=== PATIENT | female | born 1980 | race Asian ===

== ENCOUNTER 2018-06-10 06:55 | Day surgery (SDC) | payer OTHER ==
[~2018-06-10 06:55] MED LIST: BUPIVAC MPF-EPI 0.5%-1:200000 30 ML VIAL. ONE; HYDR-971 PO; HYDR25SU18 RC; HYDR30CR61 TP; NAPR-514 PO; PNV1TABL25 PO
[2018-06-10] MEDS ORDERED: PROCHLORPERAZINE 10 MG/2 ML VIAL. IV PRN (07:00)
[2018-06-10] MEDS ORDERED: MORPHINE SULFATE 2 MG/ML VIAL. IV PRN (07:00)
[2018-06-10] MEDS ORDERED: LIDOCAINE 1% PF 2 ML VIAL. ID PRN (07:00)
[2018-06-10] MEDS ORDERED: ONDANSETRON PF 4 MG/2 ML VIAL. IV PRN (07:00)
[2018-06-10] MEDS ORDERED: fentaNYL PF VIAL 100 MCG/2 ML VIAL IV PRN (07:00)
[2018-06-10] MEDS ORDERED: HYDROmorphone 2 MG/ML VIAL IV PRN (07:00)
[2018-06-10] MEDS ORDERED: IV RINGERS,LACTATED 1000ML 1,000 ML IV SCH (07:00)
[2018-06-10] MEDS ORDERED: fentaNYL PF VIAL 100 MCG/2 ML VIAL ONE ×2 (07:28→09:45)
[2018-06-10] MEDS ORDERED: MIDAZOLAM HCL/PF 2 MG/2 ML VIAL. ONE (07:28)
[2018-06-10] MEDS ORDERED: ROCURONIUM 50 MG/5 ML VIAL. ONE (07:28)
[2018-06-10 08:00] LABS: U PREG PATIENT NEGATIVE (NEG)
[2018-06-10] MEDS ORDERED: ONDANSETRON PF 4 MG/2 ML VIAL. ONE (09:18)
[2018-06-10] MEDS ORDERED: PROPOFOL 20 ML IV ONE (09:18)
[2018-06-10] MEDS ORDERED: LIDOCAINE 2% PF Vial for OR 5 ML VIAL. ONE (09:18)
[2018-06-10] MEDS ORDERED: DEXAMETHASONE SOD PHOS 20 MG/5 ML VIAL. ONE (09:18)
[2018-06-10] MEDS ORDERED: GLYCOPYRROLATE 1 MG/5 ML VIAL. ONE (09:20)
[2018-06-10] MEDS ORDERED: NEOSTIGMINE METHYLSULFATE 5 MG/5 ML SYRINGE. ONE (09:20)
[2018-06-10] MEDS ORDERED: NAPR-514 PO (09:44)
[2018-06-10] MEDS ORDERED: HYDR-971 PO (09:44)
[2018-06-10] MEDS: fentaNYL PF VIAL 100 MCG/2 ML VIAL IV PRN ×2 (09:52→10:40)
[2018-06-10] MEDS ORDERED: HYDROcodone/APAP 5/325MG 1 TAB TABLET PO ONE (10:00)
--- NOTE | 2018-06-10 10:34 | OP ---
DATE OF SURGERY: 06/10/2018 PREOPERATIVE DIAGNOSIS: Multiparous, desires permanent sterilization. POSTOPERATIVE DIAGNOSIS: Multiparous, desires permanent sterilization. PROCEDURE: Laparoscopic bilateral tubal ligation with Filshie clips. SURGEON: Kenney Henley M.D. WILD ANIMAL CARETAKER: None. ANESTHESIA: General. ESTIMATED BLOOD LOSS: 10 mL. FLUIDS: Crystalloids. SPECIMENS: None. COMPLICATIONS: None. CONDITION: Stable. DESCRIPTION OF PROCEDURE: Risks, benefits, indications and alternatives were discussed in detail with the patient. The patient was brought to the OR theater, placed in dorsal lithotomy position in Phillip stirrups. Under adequate general anesthesia, the patient was prepped and draped in the usual sterile manner. Sponge stick was placed in the vaginal vault. Attention was then turned to the anterior abdominal wall. A small transverse infraumbilical incision was made to receive the trocar. Via the Visiport, a 5-mm trocar was placed without any difficulties. Pneumoperitoneum was created. Video laparoscope was placed through the trocar sleeve to view the pelvic contents. A small transverse suprapubic incision was made sharply to receive an 8-mm disposable trocar through this trocar sleeve. After the patient was placed in Trendelenburg, the right tube was identified, followed to its fimbriated end. Approximately 1-2 cm from the cornu, the Filshie clip was placed without any difficulty. Same procedure was carried out on the opposite side. Good application was assured bilaterally and the procedure was terminated. All laparoscopic instruments were removed. The pneumoperitoneum was allowed to dissipate. Trocar sleeves were removed. The incisions were reapproximated with 4-0 Monocryl in subcuticular fashion. The incisions were infiltrated with 0.5% Marcaine with epinephrine. Sponge, needle and instrument counts were correct x 2 per nursing staff. A sponge stick was removed from the vagina. The patient tolerated the procedure well. KENNEY HENLEY MD DR: STARR/tru JOB#: [id number] / [id number]
[2018-06-10] MEDS ORDERED: NAPROXEN 500 MG TABLET PO STA (10:44)
[2018-06-10 11:10] VITALS: BP 112/62
--- NOTE | 2018-06-17 06:50 | PDOC ---
BRIEF OPERATIVE NOTE Date: Jun 10, 2018 Pre-Op Diagnosis Desires sterilization Post-Op Diagnosis Same Procedure Performed Lap BTL with filshie clips Surgeon Lory Anesthesia Type: General Blood Loss 20cc Complications None LUZ SMITH MD Jun 17, 2018 06:50
== END 2018-06-10 11:10 | disposition home or self-care (01) ==
LOC: SURG 06:55
PROVIDERS: ATTEND Specialist
DX: Z30.2 Encounter for sterilization (principal)
CPT/HCPCS: 58671; 81025; A4264; A7015; J1100; J2001; J2250; J2405; J2704; J2710; J3010; J3490; A4461

== ENCOUNTER 2019-06-14 12:50 | Inpatient (IN) | payer BC, OTHER ==
[~2019-06-14] VITALS: Ht 152.4 cm; Wt 50.6 kg
[~2019-06-14 12:50] MED LIST changes: -BUPIVAC MPF-EPI 0.5%-1:200000 30 ML VIAL. ONE; +HYDR-3164 PO; -HYDR-971 PO
[2019-06-14] MEDS ORDERED: ACETAMINOPHEN 500 MG TABLET PO STA (13:26)
[2019-06-14] MEDS ORDERED: KETOROLAC 15 MG/ML VIAL. IV STA (13:26)
--- NOTE | 2019-06-14 13:26 | PHYS DOC ---
Adult General Chief Complaint Chief Complaint: FEVER HPI HPI Patient is a 38 year old female that presents with fever this been ongoing since this past Friday. She took ibuprofen 11:00 last night for the fever. She states she's also been having dysuria, and left flank pain. The patient states that she's also been having difficulty keeping fluids and food down. The patient rates her pain a 7 out of 10 in severity and sharp. Her vitals on arrival to the emergency department was 117 heart rate, 102.7 fever, 96% oxygen. 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 Review of Systems Review of Systems Constitutional: Denies fever or chills [] Eyes: Denies change in visual acuity, redness, or eye pain [] HENT: Denies nasal congestion or sore throat [] Respiratory: Denies cough or shortness of breath [] Cardiovascular: No additional information not addressed in HPI [] GI: Reports L flank pain, nausea, Denies vomiting, bloody stools or diarrhea [] :Reports dysuria. Musculoskeletal: Denies back pain or joint pain [] Integument: Denies rash or skin lesions [] Neurologic: Denies headache, focal weakness or sensory changes [] Endocrine: Denies polyuria or polydipsia [] Complete systems were reviewed and found to be within normal limits, except as d ocumented in this note. Current Medications Current Medications Current Medications Medications (Trade) Dose Ordered Sig/Edda Start Time Stop Time Status Last Admin Dose Admin Acetaminophen (Tylenol) 500 mg 1X STAT 06/14/19 13:26 06/14/19 13:31 DC 06/14/19 14:05 500 MG Ceftriaxone Sodium (Rocephin) 1 gm 1X STAT 06/14/19 16:41 06/14/19 16:42 DC Ketorolac Tromethamine (Toradol 15mg Vial) 10 mg 1X STAT 06/14/19 13:26 06/14/19 13:31 DC 06/14/19 14:05 10 MG Ondansetron HCl (Zofran) 4 mg 1X ONCE 06/14/19 13:30 06/14/19 13:31 DC 06/14/19 14:04 4 MG Potassium Chloride (Klor-Con) 60 meq 1X STAT 06/14/19 14:40 06/14/19 14:41 DC 06/14/19 14:47 60 MEQ Sodium Chloride 1,000 ml @ 1,000 mls/hr 1X ONCE 06/14/19 13:30 06/14/19 14:29 DC 06/14/19 14:03 1,000 MLS/HR Allergies Allergies Allergies Coded Allergies Type Severity Reaction Last Updated Verified No Known Drug Allergies 04/24/18 No Physical Exam Physical Exam Constitutional: Well developed, well nourished, no acute distress, toxic appearance. HENT: Normocephalic, atraumatic, bilateral external ears normal, oropharynx moist, no oral exudates, nose normal. [] Eyes: PERRLA, EOMI, conjunctiva normal, no discharge. [] Neck: Normal range of motion, no tenderness, supple, no stridor. [] Cardiovascular:Heart rate regular rhythm, no murmur [] Lungs & Thorax: Bilateral breath sounds clear to auscultation [] Abdomen: Bowel sounds normal, soft, L flank tenderness, no masses, no pulsatile masses. [] Skin: Warm, dry, no erythema, no rash. [] Back: No tenderness, has CVA tenderness. [] Extremities: No tenderness, no cyanosis, no clubbing, ROM intact, no edema. [] Neurologic: Alert and oriented X 3, normal motor function, normal sensory function, no focal deficits noted. [] Psychologic: Affect normal, judgement normal, mood normal. [] Current Patient Data Vital Signs Vital Signs Date Time Temp Pulse Resp B/P (MAP) Pulse Ox O2 Delivery O2 Flow Rate FiO2 06/14/19 13:37 102.7 117 20 112/62 (79) 96 Room Air 102.7 Lab Values Laboratory Tests Test 06/14/19 13:26 06/14/19 13:28 06/14/19 13:50 Urine Color Yellow Urine Clarity Cloudy Urine pH 5.5 Urine Specific [place] 1.015 Urine Protein 30 mg/dL (NEG-TRACE) Urine Glucose (UA) Negative mg/dL (NEG) Urine Ketones (Stick) >=80 mg/dL (NEG) Urine Blood Moderate (NEG) Urine Nitrite Negative (NEG) Urine Bilirubin Negative (NEG) Urine Urobilinogen Dipstick 0.2 mg/dL (0.2 mg/dL) Urine Leukocyte Esterase Large (NEG) Urine RBC 3-5 /HPF (0-2) Urine WBC Tntc /HPF (0-4) Urine Squamous Epithelial Cells Occ /LPF Urine Bacteria Moderate /HPF (0-FEW) Urine Mucus Slight /LPF POC Urine HCG, Qualitative Hcg negative (Negative) White Blood Count 8.6 x10^3/uL (4.0-11.0) Red Blood Count 4.45 x10^6/uL (3.50-5.40) Hemoglobin 11.9 g/dL (12.0-15.5) L Hematocrit 36.2 % (36.0-47.0) Mean Corpuscular Volume 82 fL (79-100) Mean Corpuscular Hemoglobin 27 pg (25-35) Mean Corpuscular Hemoglobin Concent 33 g/dL (31-37) Red Cell Distribution Width 14.4 % (11.5-14.5) Platelet Count 179 x10^3/uL (140-400) Neutrophils (%) (Auto) 86 % (31-73) H Lymphocytes (%) (Auto) 6 % (24-48) L Monocytes (%) (Auto) 8 % (0-9) Eosinophils (%) (Auto) 0 % (0-3) Basophils (%) (Auto) 0 % (0-3) Neutrophils # (Auto) 7.4 x10^3/uL (1.8-7.7) Lymphocytes # (Auto) 0.5 x10^3/uL (1.0-4.8) L Monocytes # (Auto) 0.7 x10^3/uL (0.0-1.1) Eosinophils # (Auto) 0.0 x10^3/uL (0.0-0.7) Basophils # (Auto) 0.0 x10^3/uL (0.0-0.2) Platelet Estimate Pending Sodium Level 138 mmol/L (136-145) Potassium Level 2.9 mmol/L (3.5-5.1) *L Chloride Level 101 mmol/L (98-107) Carbon Dioxide Level 19 mmol/L (21-32) L Anion Gap 18 (6-14) H Blood Urea Nitrogen 7 mg/dL (7-20) Creatinine 0.8 mg/dL (0.6-1.0) Estimated GFR (Cockcroft-Gault) 81.2 BUN/Creatinine Ratio 9 (6-20) Glucose Level 97 mg/dL (70-99) Lactic Acid Level 1.1 mmol/L (0.4-2.0) Calcium Level 8.3 mg/dL (8.5-10.1) L Total Bilirubin 0.6 mg/dL (0.2-1.0) Aspartate Amino Transferase (AST) 13 U/L (15-37) L Alanine Aminotransferase (ALT) 9 U/L (14-59) L Alkaline Phosphatase 63 U/L (46-116) Total Protein 8.0 g/dL (6.4-8.2) Albumin 3.4 g/dL (3.4-5.0) Albumin/Globulin Ratio 0.7 (1.0-1.7) L Laboratory Tests 06/14/19 13:50 Laboratory Tests 06/14/19 13:50 EKG EKG [] Radiology/Procedures Radiology/Procedures [][facility] [address] [place] [address] IMAGING REPORT Signed PATIENT: NILSA CHAU ACCOUNT: [id number] : 1980 LOCATION: ER AGE: 38 SEX: F EXAM STATUS: REG ER ORD. PHYSICIAN: LEELA CHAPA APRN REASON: l flank pain PROCEDURE: CT ABDOMEN PELVIS WO CONTRAST EXAM: Abdomen and pelvis CT without intravenous contrast. HISTORY: Left flank pain. TECHNIQUE: Computed tomographic images of the abdomen and pelvis were obtained without contrast. Multiplanar reformatting was performed. *One or more of the following individualized dose reduction techniques were utilized for this examination: 1. Automated exposure control. 2. Adjustment of the mA and/or kV according to patient size. 3. Use of iterative reconstruction technique. COMPARISON: None. FINDINGS: The exam is limited due to motion. Evaluation of the lower thorax is unremarkable. No hepatic lesion is seen. The gallbladder, pancreas and adrenal glands are unremarkable. The spleen is upper normal in size. There is a prominent renal collecting system. No convincing obstructing lesion is seen. There is no convincing nephrolithiasis. There is a calcification within the left adnexa, the appearance of which favors a phlebolith. The uterus is retroverted. There are bilateral fallopian tube closure devices. The bladder is nearly empty with associated wall thickening due to underdistention. No abnormally thickened or dilated loop of bowel is seen. There is no appendicitis. There is no lymphadenopathy. There is no suspicious osseous lesion. IMPRESSION: Limited exam due to motion. There is a prominent renal collecting system without clear obstructing lesion or nephrolithiasis. There is a calcification along the course of the distal left ureter, the appearance of which favors a phlebolith. There is also bladder wall thickening which is likely due to underdistention. Correlate with urinalysis to exclude cystitis. Electronically signed by: Sarika Hodges MD (06/14/2019 2:20 PM) [place] [id number] DICTATED and SIGNED BY: SARIKA HODGES MD DATE: 06/14/19 1420 Course & Med Decision Making Course & Med Decision Making Pertinent Labs and Imaging studies reviewed. (See chart for details) Will get CT, labs, UA, and give supportive care. UA shows leukocytes. Patient has been having high fever plus leukocytes in urine. Has been unable to keep fluids down at home. Will admit to hospital, Dr. Chaudhary accepts admission. Dragon Disclaimer Dragon Disclaimer This electronic medical record was generated, in whole or in part, using a voice recognition dictation system. Departure Departure Impression: Primary Impression: Pyelonephritis Disposition: ADMITTED INPATIENT Admitting Physician: FELIPE Condition: STABLE Referrals: NO PCP (PCP) LEELA CHAPA APRN Jun 14, 2019 13:26
[2019-06-14] MEDS ORDERED: IV NORMAL SALINE 1000ML BAG 1,000 ML IV ONE (13:30)
[2019-06-14] MEDS ORDERED: ONDANSETRON PF 4 MG/2 ML VIAL. IV ONE (13:30)
[2019-06-14 13:43] LABS: BILIRUBIN,URINE NEGATIVE (NEG); CLARITY,URINE CLOUDY; COLOR,URINE YELLOW; NITRITE,URINE NEGATIVE (NEG); PH,URINE 5.5; PROTEIN,URINE 30 mg/dL (NEG-TRACE); UROBILINOGEN,URINE 0.2 mg/dL (0.2 mg/dL)
[2019-06-14 14:08] LABS: BASO % 0 % (0-3); EOS % 0 % (0-3); HEMATOCRIT 36.2 % (36.0-47.0); HEMOGLOBIN 11.9 g/dL (12.0-15.5); LYMPH # 0.5 x10^3/uL (1.0-4.8); LYMPH % 6 % (24-48); MEAN CORPUSCULAR HEMOGLOBIN 27 pg (25-35); MEAN CORPUSCULAR HGB CONC 33 g/dL (31-37); MEAN CORPUSCULAR VOLUME 82 fL (79-100); MONO # 0.7 x10^3/uL (0.0-1.1); MONO % 8 % (0-9); NEUT # 7.4 x10^3/uL (1.8-7.7); NEUT % 86 % (31-73); PLATELET COUNT 179 x10^3/uL (140-400); RED BLOOD COUNT 4.45 x10^6/uL (3.50-5.40); RED CELL DISTRIBUTION WIDTH 14.4 % (11.5-14.5); WHITE BLOOD COUNT 8.6 x10^3/uL (4.0-11.0)
[2019-06-14 14:15] LABS: BACTERIA,URINE MODERATE /HPF (0-FEW); SQUAMOUS EPITHELIAL CELL,UR OCC /LPF; WBC,URINE TNTC /HPF (0-4)
--- NOTE | 2019-06-14 14:23 | RAD ---
EXAM: Abdomen and pelvis CT without intravenous contrast. HISTORY: Left flank pain. TECHNIQUE: Computed tomographic images of the abdomen and pelvis were obtained without contrast. Multiplanar reformatting was performed. *One or more of the following individualized dose reduction techniques were utilized for this examination: 1. Automated exposure control. 2. Adjustment of the mA and/or kV according to patient size. 3. Use of iterative reconstruction technique. COMPARISON: None. FINDINGS: The exam is limited due to motion. Evaluation of the lower thorax is unremarkable. No hepatic lesion is seen. The gallbladder, pancreas and adrenal glands are unremarkable. The spleen is upper normal in size. There is a prominent renal collecting system. No convincing obstructing lesion is seen. There is no convincing nephrolithiasis. There is a calcification within the left adnexa, the appearance of which favors a phlebolith. The uterus is retroverted. There are bilateral fallopian tube closure devices. The bladder is nearly empty with associated wall thickening due to underdistention. No abnormally thickened or dilated loop of bowel is seen. There is no appendicitis. There is no lymphadenopathy. There is no suspicious osseous lesion. IMPRESSION: Limited exam due to motion. There is a prominent renal collecting system without clear obstructing lesion or nephrolithiasis. There is a calcification along the course of the distal left ureter, the appearance of which favors a phlebolith. There is also bladder wall thickening which is likely due to underdistention. Correlate with urinalysis to exclude cystitis. Electronically signed by: Sarika Puckett MD (06/14/2019 2:20 PM) [id number]
[2019-06-14 14:32] LABS: ALBUMIN 3.4 g/dL (3.4-5.0); ALBUMIN/GLOBULIN RATIO 0.7 (1.0-1.7); CALCIUM 8.3 mg/dL (8.5-10.1); CREATININE 0.8 mg/dL (0.6-1.0); GFR 81.2; TOTAL BILIRUBIN 0.6 mg/dL (0.2-1.0)
[2019-06-14 14:34] LABS: POTASSIUM 2.9 mmol/L (3.5-5.1)
[2019-06-14] MEDS ORDERED: POTASSIUM CHLORIDE 20 MEQ TABLET.ER. PO STA (14:40)
[2019-06-14] MEDS ORDERED: cefTRIAXone IV Push 1 GM VIAL. IVP STA (16:41)
[2019-06-14] MEDS ORDERED: ONDANSETRON PF 4 MG/2 ML VIAL. IV PRN (17:30)
[2019-06-14] MEDS ORDERED: fentaNYL PF VIAL 100 MCG/2 ML VIAL IV PRN (17:30)
[2019-06-14 18:27] LABS: % LYMPHS 4 % (24-48); % MONOS 6 % (0-10); % SEGS 90 % (35-66)
[2019-06-14 18:28] LABS: ANISOCYTOSIS SLIGHT; PLT ESTIMATE ADEQUATE (ADEQUATE); SCHISTOCYTES OCC
[2019-06-14 19:10] VITALS: BP 92/47
--- NOTE | 2019-06-14 21:28 | PDOC1 ---
History and Physical Date of Admission Date of Admission DATE: 06/14/19 TIME: 21:22 Identification/Chief Complaint Chief Complaint flank pain, fever Source Source: Chart review, Patient History of Present Illness History of Present Illness Ms. Armijo, is a 38 year old female admit with fever and flank pain. She has had fver for days, has been taking NSAIDS. poro po intake, dysuria, and left flank pain. The patient states that she's also been having difficulty keeping fluids and food down. pain 7/10 her helps to translate, they are [employer] Past Medical History Cardiovascular: No pertinent hx Pulmonary: No pertinent hx GI: No pertinent hx Grav: 5 Para: 5 Past Surgical History Past Surgical History: No pertinent history Family History Family History: No Significant Social History Smoke: No ALCOHOL: none Drugs: None Current Problem List Problem List Problems Medical Problems: (1) Pyelonephritis Status: Acute Current Medications Current Medications Current Medications Sodium Chloride 1,000 ml @ 1,000 mls/hr 1X ONCE IV Last administered on 06/14/19at 14:03; Start 06/14/19 at 13:30; Stop 06/14/19 at 14:29; Status DC Ondansetron HCl (Zofran) 4 mg 1X ONCE IV Last administered on 06/14/19at 14:04; Start 06/14/19 at 13:30; Stop 06/14/19 at 13:31; Status DC Ketorolac Tromethamine (Toradol 15mg Vial) 10 mg 1X STAT IV Last administered on 06/14/19at 14:05; Start 06/14/19 at 13:26; Stop 06/14/19 at 13:31; Status DC Acetaminophen (Tylenol) 500 mg 1X STAT PO Last administered on 06/14/19at 14:05; Start 06/14/19 at 13:26; Stop 06/14/19 at 13:31; Status DC Potassium Chloride (Klor-Con) 60 meq 1X STAT PO Last administered on 06/14/19at 14:47; Start 06/14/19 at 14:40; Stop 06/14/19 at 14:41; Status DC Ceftriaxone Sodium (Rocephin) 1 gm 1X STAT IVP Last administered on 06/14/19at 17:29; Start 06/14/19 at 16:41; Stop 06/14/19 at 16:42; Status DC Ondansetron HCl (Zofran) 4 mg PRN Q8HRS PRN IV NAUSEA/VOMITING; Start 06/14/19 at 17:30; Stop 06/15/19 at 17:29 Fentanyl Citrate (Fentanyl 2ml Vial) 50 mcg PRN Q1HR PRN IV PAIN; Start 06/14/19 at 17:30; Stop 06/15/19 at 17:29 Active Scripts Active [place] 5-325 Tablet (Acetaminophen/Hydrocodone Bitart) 1 Each Tablet 1 Tab PO PRN Q6HRS PRN Naproxen 500 Mg Tablet 500 Mg PO BID Reported Tablet (Pnv Cmb#95/Ferrous Fumarate/Fa) 1 Each Tablet 1 Each PO DAILY Allergies Allergies: Coded Allergies: No Known Drug Allergies (Unverified , 04/24/18) ROS General: YES: Chills, Fatigue, Malaise PSYCHOLOGICAL ROS: No: Anxiety, Behavioral Disorder, Concentration difficultie, Decreased libido, Depression, Disorientation, Hallucinations, Hostility, Irritablity, Memory difficulties, Mood Swings, Obsessive thoughts, Physical abuse, Sexual abuse, Sleep disturbances, Suicidal ideation, Other Eyes: No Blurry vision, No Decreased vision, No Double vision, No Dry eyes, No Excessive tearing, No Eye Pain, No Itchy Eyes, No Loss of vision, No Photop hobia, No Scotomata, No Uses contacts, No Uses glasses, No Other HEENT: No: Heacaches, Visual Changes, Hearing change, Nasal congestion, Nasal discharge, Oral lesions, Sinus pain, Sore Throat, Epistaxis, Sneezing, Snoring, Tinnitus, Vertigo, Vocal changes, Other Gastrointestinal: Yes Nausea; No Vomiting, No Abdominal Pain, No Diarrhea, No Constipation, No Melena, No Hematochezia, No Other Genitourinary: YES Dysuria, YES Flank Pain; No Frequency, No Incontinence, No Hematuria, No Retention, No Discharge, No Urgency, No Pain, No Other, No , No , No , No , No , No , No Musculoskeletal: No Gait Disturbance, No Joint Pain, No Joint Stiffness, No Joint Swelling, No Muscle Pain, No Muscular Weakness, No Pain In:, No Swelling In:, No Other Neurological: No Behavorial Changes, No Bowel/Bladder ControlChng, No Confusion, No Dizziness, No Gait Disturbance, No Headaches, No Impaired Coord/balance, No Memory Loss, No Numbness/Tingling, No Seizures, No Speech Problems, No Tremors, No Visual Changes, No Weakness, No Other Skin: No Dry Skin, No Eczema, No Hair Changes, No Lumps, No Mole Changes, No Mottling, No Nail Changes, No Pruritus, No Rash, No Skin Lesion Changes, No Other, No Acne Physical Exam General: Alert, Cooperative, No acute distress HEENT: Atraumatic, PERRLA Lungs: Clear to auscultation Heart: S1S2 Rectal Exam: not examined Extremities: No clubbing, No cyanosis Skin: No rashes Neuro: Sensation intact, Cranial nerves 3-12 NL Psych/Mental Status: Mood NL Vitals Vitals Vital Signs Date Time Temp Pulse Resp B/P (MAP) Pulse Ox O2 Delivery O2 Flow Rate FiO2 06/14/19 19:10 98.2 88 18 92/47 (62) 100 Room Air 98.2 Labs Labs Laboratory Tests Test 06/14/19 13:26 06/14/19 13:28 06/14/19 13:50 Urine Color Yellow Urine Clarity Cloudy Urine pH 5.5 Urine Specific [place] 1.015 Urine Protein 30 mg/dL (NEG-TRACE) Urine Glucose (UA) Negative mg/dL (NEG) Urine Ketones (Stick) >=80 mg/dL (NEG) Urine Blood Moderate (NEG) Urine Nitrite Negative (NEG) Urine Bilirubin Negative (NEG) Urine Urobilinogen Dipstick 0.2 mg/dL (0.2 mg/dL) Urine Leukocyte Esterase Large (NEG) Urine RBC 3-5 /HPF (0-2) Urine WBC Tntc /HPF (0-4) Urine Squamous Epithelial Cells Occ /LPF Urine Bacteria Moderate /HPF (0-FEW) Urine Mucus Slight /LPF Bedside Urine HCG, Qualitative Hcg negative (Negative) White Blood Count 8.6 x10^3/uL (4.0-11.0) Red Blood Count 4.45 x10^6/uL (3.50-5.40) Hemoglobin 11.9 g/dL (12.0-15.5) Hematocrit 36.2 % (36.0-47.0) Mean Corpuscular Volume 82 fL (79-100) Mean Corpuscular Hemoglobin 27 pg (25-35) Mean Corpuscular Hemoglobin Concent 33 g/dL (31-37) Red Cell Distribution Width 14.4 % (11.5-14.5) Platelet Count 179 x10^3/uL (140-400) Neutrophils (%) (Auto) 86 % (31-73) Lymphocytes (%) (Auto) 6 % (24-48) Monocytes (%) (Auto) 8 % (0-9) Eosinophils (%) (Auto) 0 % (0-3) Basophils (%) (Auto) 0 % (0-3) Neutrophils # (Auto) 7.4 x10^3/uL (1.8-7.7) Lymphocytes # (Auto) 0.5 x10^3/uL (1.0-4.8) Monocytes # (Auto) 0.7 x10^3/uL (0.0-1.1) Eosinophils # (Auto) 0.0 x10^3/uL (0.0-0.7) Basophils # (Auto) 0.0 x10^3/uL (0.0-0.2) Segmented Neutrophils % 90 % (35-66) Lymphocytes % 4 % (24-48) Monocytes % 6 % (0-10) Platelet Estimate Adequate (ADEQUATE) Anisocytosis Slight Schistocytes Occ Sodium Level 138 mmol/L (136-145) Potassium Level 2.9 mmol/L (3.5-5.1) Chloride Level 101 mmol/L (98-107) Carbon Dioxide Level 19 mmol/L (21-32) Anion Gap 18 (6-14) Blood Urea Nitrogen 7 mg/dL (7-20) Creatinine 0.8 mg/dL (0.6-1.0) Estimated GFR (Cockcroft-Gault) 81.2 BUN/Creatinine Ratio 9 (6-20) Glucose Level 97 mg/dL (70-99) Lactic Acid Level 1.1 mmol/L (0.4-2.0) Calcium Level 8.3 mg/dL (8.5-10.1) Total Bilirubin 0.6 mg/dL (0.2-1.0) Aspartate Amino Transf (AST/SGOT) 13 U/L (15-37) Alanine Aminotransferase (ALT/SGPT) 9 U/L (14-59) Alkaline Phosphatase 63 U/L (46-116) Total Protein 8.0 g/dL (6.4-8.2) Albumin 3.4 g/dL (3.4-5.0) Albumin/Globulin Ratio 0.7 (1.0-1.7) Laboratory Tests Test 06/14/19 13:26 06/14/19 13:28 06/14/19 13:50 Urine Color Yellow Urine Clarity Cloudy Urine pH 5.5 Urine Specific [place] 1.015 Urine Protein 30 mg/dL (NEG-TRACE) Urine Glucose (UA) Negative mg/dL (NEG) Urine Ketones (Stick) >=80 mg/dL (NEG) Urine Blood Moderate (NEG) Urine Nitrite Negative (NEG) Urine Bilirubin Negative (NEG) Urine Urobilinogen Dipstick 0.2 mg/dL (0.2 mg/dL) Urine Leukocyte Esterase Large (NEG) Urine RBC 3-5 /HPF (0-2) Urine WBC Tntc /HPF (0-4) Urine Squamous Epithelial Cells Occ /LPF Urine Bacteria Moderate /HPF (0-FEW) Urine Mucus Slight /LPF Bedside Urine HCG, Qualitative Hcg negative (Negative) White Blood Count 8.6 x10^3/uL (4.0-11.0) Red Blood Count 4.45 x10^6/uL (3.50-5.40) Hemoglobin 11.9 g/dL (12.0-15.5) Hematocrit 36.2 % (36.0-47.0) Mean Corpuscular Volume 82 fL (79-100) Mean Corpuscular Hemoglobin 27 pg (25-35) Mean Corpuscular Hemoglobin Concent 33 g/dL (31-37) Red Cell Distribution Width 14.4 % (11.5-14.5) Platelet Count 179 x10^3/uL (140-400) Neutrophils (%) (Auto) 86 % (31-73) Lymphocytes (%) (Auto) 6 % (24-48) Monocytes (%) (Auto) 8 % (0-9) Eosinophils (%) (Auto) 0 % (0-3) Basophils (%) (Auto) 0 % (0-3) Neutrophils # (Auto) 7.4 x10^3/uL (1.8-7.7) Lymphocytes # (Auto) 0.5 x10^3/uL (1.0-4.8) Monocytes # (Auto) 0.7 x10^3/uL (0.0-1.1) Eosinophils # (Auto) 0.0 x10^3/uL (0.0-0.7) Basophils # (Auto) 0.0 x10^3/uL (0.0-0.2) Segmented Neutrophils % 90 % (35-66) Lymphocytes % 4 % (24-48) Monocytes % 6 % (0-10) Platelet Estimate Adequate (ADEQUATE) Anisocytosis Slight Schistocytes Occ Sodium Level 138 mmol/L (136-145) Potassium Level 2.9 mmol/L (3.5-5.1) Chloride Level 101 mmol/L (98-107) Carbon Dioxide Level 19 mmol/L (21-32) Anion Gap 18 (6-14) Blood Urea Nitrogen 7 mg/dL (7-20) Creatinine 0.8 mg/dL (0.6-1.0) Estimated GFR (Cockcroft-Gault) 81.2 BUN/Creatinine Ratio 9 (6-20) Glucose Level 97 mg/dL (70-99) Lactic Acid Level 1.1 mmol/L (0.4-2.0) Calcium Level 8.3 mg/dL (8.5-10.1) Total Bilirubin 0.6 mg/dL (0.2-1.0) Aspartate Amino Transf (AST/SGOT) 13 U/L (15-37) Alanine Aminotransferase (ALT/SGPT) 9 U/L (14-59) Alkaline Phosphatase 63 U/L (46-116) Total Protein 8.0 g/dL (6.4-8.2) Albumin 3.4 g/dL (3.4-5.0) Albumin/Globulin Ratio 0.7 (1.0-1.7) VTE Prophylaxis Ordered VTE Prophylaxis Devices: No VTE Pharmacological Prophylaxi: Yes Assessment/Plan Assessment/Plan sepsis UTI and acute pyelonephritis hypokalemia, , currently breastfeedign a one year old. she is [employer], the [facility] dept has a physician who speaks the language and may be helpful admit MONTY WEN MD Jun 14, 2019 21:28
[2019-06-14] MEDS ORDERED: cefTRIAXone IV Push 1 GM VIAL. IVP SCH (22:00)
[2019-06-14 22:45] VITALS: BP 100/53
[2019-06-14] MEDS: IV RINGERS,LACTATED 1000ML 1,000 ML IV SCH (23:16)
[2019-06-14] MEDS: ENOXAPARIN 40 MG/0.4 ML SYRINGE. SQ SCH (23:18)
[2019-06-15] MEDS: ACETAMINOPHEN 325 MG TABLET. PO PRN ×3 (00:18→16:52)
[2019-06-15 03:40] VITALS: BP 84/52
[2019-06-15 04:40] LABS: BASO % 0 % (0-3); EOS % 0 % (0-3); HEMATOCRIT 30.4 % (36.0-47.0); LYMPH # 1.2 x10^3/uL (1.0-4.8); LYMPH % 16 % (24-48); MEAN CORPUSCULAR HEMOGLOBIN 27 pg (25-35); MEAN CORPUSCULAR HGB CONC 33 g/dL (31-37); MEAN CORPUSCULAR VOLUME 82 fL (79-100); MONO % 14 % (0-9); NEUT % 70 % (31-73); PLATELET COUNT 165 x10^3/uL (140-400); RED BLOOD COUNT 3.72 x10^6/uL (3.50-5.40); RED CELL DISTRIBUTION WIDTH 14.4 % (11.5-14.5); WHITE BLOOD COUNT 7.2 x10^3/uL (4.0-11.0)
[2019-06-15 05:10] LABS: ALBUMIN 2.7 g/dL (3.4-5.0); ALBUMIN/GLOBULIN RATIO 0.7 (1.0-1.7); CALCIUM 7.8 mg/dL (8.5-10.1); CREATININE 0.7 mg/dL (0.6-1.0); GFR 94.7; MAGNESIUM 1.9 mg/dL (1.8-2.4); POTASSIUM 3.7 mmol/L (3.5-5.1); TOTAL BILIRUBIN 0.4 mg/dL (0.2-1.0); TOTAL PROTEIN 6.5 g/dL (6.4-8.2)
[2019-06-15 07:00] VITALS: BP 91/53
[2019-06-15] MEDS: POTASSIUM CHLORIDE 20 MEQ TABLET.ER. PO SCH (09:31)
[2019-06-15] MEDS: FLU VAX QS 2019-20 (36MOS+)/PF 0.5 ML SYRINGE. VAX IM ONE (09:34)
[2019-06-15] MEDS: IV RINGERS,LACTATED 1000ML 1,000 ML IV SCH ×2 (09:36→17:52)
--- NOTE | 2019-06-15 10:51 | NUR ---
Patient had temperature of 101.3 at 22:45 last night. Temp. this am 98.3. Flu Vac held this shift. Will monitor.
[2019-06-15 11:00] VITALS: BP 84/49
--- NOTE | 2019-06-15 13:19 | NUR ---
SS following for discharge planning. SS reviewed pt chart. Pt is from home with spouse and is currently on room air. SS will continue to follow for discharge planning.
--- NOTE | 2019-06-15 14:07 | PDOC ---
[facility] PROGRESS NOTE Chief Complaint Chief Complaint sepsis UTI and acute pyelonephritis hypokalemia, , currently breastfeedign a [age] year old. she is [place], the [facility] de[facility] has a physician who speaks the language and may be helpful History of Present Illness History of Present Illness 06/15/2019 Pt was seen and examined. Pt does not speak Kiswahili was interviewed with interviewed with staff member who spoke Croatian. She reports that she feels better however still has residual left flank pain. Reports that she has 5 children at home and would like to return home to take care of them. She at all of her breakfast and has had no complaints with tolerating her diet. Vitals/I&O Vitals/I&O: Vital Signs Date Time Temp Pulse Resp B/P (MAP) Pulse Ox O2 Delivery O2 Flow Rate FiO2 06/15/19 11:00 100.1 94 18 84/49 (61) 98 Room Air 100.1 I & O 06/14/19 06/14/19 06/15/19 15:00 23:00 07:00 Intake Total 1000 ml 1200 ml Balance 1000 ml 1200 ml Physical Exam General: Alert, Oriented X3, Cooperative, No acute distress Heart: Regular rate Lungs: Clear Abdomen: Normal bowel sounds Extremities: No clubbing, No cyanosis Skin: No rashes Labs Labs: Laboratory Tests Test 06/15/19 03:10 06/15/19 04:00 Sodium Level 142 mmol/L (136-145) Potassium Level 3.7 mmol/L (3.5-5.1) Chloride Level 107 mmol/L (98-107) Carbon Dioxide Level 20 mmol/L (21-32) Anion Gap 15 (6-14) Blood Urea Nitrogen 7 mg/dL (7-20) Creatinine 0.7 mg/dL (0.6-1.0) Estimated GFR (Cockcroft-Gault) 94.7 BUN/Creatinine Ratio 10 (6-20) Glucose Level 77 mg/dL (70-99) Calcium Level 7.8 mg/dL (8.5-10.1) Magnesium Level 1.9 mg/dL (1.8-2.4) Total Bilirubin 0.4 mg/dL (0.2-1.0) Aspartate Amino Transf (AST/SGOT) 13 U/L (15-37) Alanine Aminotransferase (ALT/SGPT) 9 U/L (14-59) Alkaline Phosphatase 53 U/L (46-116) Total Protein 6.5 g/dL (6.4-8.2) Albumin 2.7 g/dL (3.4-5.0) Albumin/Globulin Ratio 0.7 (1.0-1.7) White Blood Count 7.2 x10^3/uL (4.0-11.0) Red Blood Count 3.72 x10^6/uL (3.50-5.40) Hemoglobin 10.0 g/dL (12.0-15.5) Hematocrit 30.4 % (36.0-47.0) Mean Corpuscular Volume 82 fL (79-100) Mean Corpuscular Hemoglobin 27 pg (25-35) Mean Corpuscular Hemoglobin Concent 33 g/dL (31-37) Red Cell Distribution Width 14.4 % (11.5-14.5) Platelet Count 165 x10^3/uL (140-400) Neutrophils (%) (Auto) 70 % (31-73) Lymphocytes (%) (Auto) 16 % (24-48) Monocytes (%) (Auto) 14 % (0-9) Eosinophils (%) (Auto) 0 % (0-3) Basophils (%) (Auto) 0 % (0-3) Neutrophils # (Auto) 5.0 x10^3/uL (1.8-7.7) Lymphocytes # (Auto) 1.2 x10^3/uL (1.0-4.8) Monocytes # (Auto) 1.0 x10^3/uL (0.0-1.1) Eosinophils # (Auto) 0.0 x10^3/uL (0.0-0.7) Basophils # (Auto) 0.0 x10^3/uL (0.0-0.2) Review of Systems Review of Systems: Denies CP Denies SOB Denies N/V/D Assessment and Plan Assessmemt and Plan Problems Medical Problems: (1) Hypokalemia Status: Acute (2) Pyelonephritis Status: Acute (3) Sepsis Status: Acute (4) UTI (urinary tract infection) Status: Acute sepsis UTI and acute pyelonephritis hypokalemia, , currently breast feeding a [age] year old Plan: 1) IV antibiotics (ceftriaxone inpatient with plans to transition to ciprofloxacin outpatient) 2) Trend white counts 3) Plan to D/C patient tomorrow if no fevers and WBCs are wnl 4) Advised patient begin taking slow fe at home due to slight normocytic anemia while hospitalized 5) Wrote patient a prescription for Ciprofloxacin 6) PT/OT 7) DVT prophylaxis Comment Review of Relevant I have reviewed the following items jimmy (where applicable) has been applied. Medications: Current Medications Medications (Trade) Dose Ordered Sig/Edda Route PRN Reason Start Time Stop Time Status Last Admin Dose Admin Potassium Chloride (Klor-Con) 60 meq 1X STAT PO 06/14/19 14:40 06/14/19 14:41 DC 06/14/19 14:47 Ceftriaxone Sodium (Rocephin) 1 gm 1X STAT IVP 06/14/19 16:41 06/14/19 16:42 DC 06/14/19 17:29 Potassium Chloride (Klor-Con) 20 meq DAILYWBKFT PO 06/15/19 08:00 06/15/19 09:31 Ringer's Solution 1,000 ml @ 100 mls/hr Q10H IV 06/14/19 21:30 06/15/19 09:36 Enoxaparin Sodium (Lovenox 40mg Syringe) 40 mg Q24H SQ 06/14/19 21:30 06/14/19 23:18 Acetaminophen (Tylenol) 650 mg PRN Q6HRS PRN PO FEVER > 101 06/15/19 00:00 06/15/19 09:31 REMINGTON MOTA III DO Jun 15, 2019 14:07
[2019-06-15 15:00] VITALS: BP 132/52
--- NOTE | 2019-06-15 17:05 | NUR ---
Patient Temp 103 at 1650. Tylenol 325mg 2 tabs given and cold ice pack applied. Will monitor.
[2019-06-15] MEDS ORDERED: cefTRIAXone IV Push 1 GM VIAL. IVP SCH (17:30)
[2019-06-15 19:41] VITALS: BP 90/50
[2019-06-15] MEDS: ENOXAPARIN 40 MG/0.4 ML SYRINGE. SQ SCH (20:50)
[2019-06-15 23:14] VITALS: BP 88/51
[2019-06-16 03:41] VITALS: BP 84/54
[2019-06-16] MEDS: ACETAMINOPHEN 325 MG TABLET. PO PRN (04:14)
[2019-06-16] MEDS: IV RINGERS,LACTATED 1000ML 1,000 ML IV SCH (04:35)
[2019-06-16 05:46] LABS: BASO % 0 % (0-3); EOS % 0 % (0-3); HEMATOCRIT 30.8 % (36.0-47.0); LYMPH # 0.9 x10^3/uL (1.0-4.8); LYMPH % 21 % (24-48); MEAN CORPUSCULAR HEMOGLOBIN 26 pg (25-35); MEAN CORPUSCULAR HGB CONC 33 g/dL (31-37); MEAN CORPUSCULAR VOLUME 81 fL (79-100); MONO # 0.5 x10^3/uL (0.0-1.1); MONO % 11 % (0-9); NEUT # 3.1 x10^3/uL (1.8-7.7); NEUT % 68 % (31-73); PLATELET COUNT 162 x10^3/uL (140-400); RED BLOOD COUNT 3.83 x10^6/uL (3.50-5.40); RED CELL DISTRIBUTION WIDTH 14.3 % (11.5-14.5); WHITE BLOOD COUNT 4.5 x10^3/uL (4.0-11.0)
[2019-06-16 06:11] LABS: ALBUMIN 2.8 g/dL (3.4-5.0); ALBUMIN/GLOBULIN RATIO 0.7 (1.0-1.7); CALCIUM 8.3 mg/dL (8.5-10.1); CREATININE 0.6 mg/dL (0.6-1.0); GFR 113.1; POTASSIUM 3.4 mmol/L (3.5-5.1); TOTAL BILIRUBIN 0.2 mg/dL (0.2-1.0); TOTAL PROTEIN 6.8 g/dL (6.4-8.2)
[2019-06-16 07:28] VITALS: BP 84/50
[2019-06-16] MEDS: POTASSIUM CHLORIDE 20 MEQ TABLET.ER. PO SCH (09:30)
[2019-06-16] MEDS ORDERED: LACTOBACILLUS RHAMNOSUS GG 1 CAPSULE. PO SCH (11:00)
[2019-06-16 11:09] VITALS: BP 84/50
[2019-06-16] MEDS: FLU VAX QS 2019-20 (36MOS+)/PF 0.5 ML SYRINGE. VAX IM ONE (12:59)
[2019-06-16] MEDS ORDERED: AMOX1TAB58 PO (13:57)
[2019-06-16] MEDS ORDERED: LACT1CAP21 PO (14:00)
--- NOTE | 2019-06-16 14:33 | PDOC ---
[facility] PROGRESS NOTE Chief Complaint Chief Complaint sepsis UTI and acute pyelonephritis hypokalemia, , currently breastfeedign a [age] year old. she is Citizen Of [place], the [facility] de[facility] has a physician who speaks the language and may be helpful History of Present Illness History of Present Illness 06/16/2019 Pt was seen and examined. Pt is eager to be discharged and reports return to baseline. 06/15/2019 Pt was seen and examined. Pt does not speak Kuwaiti was interviewed with interviewed with staff member who spoke Citizen Of [place]. She reports that she feels better however still has residual left flank pain. Reports that she has 5 children at home and would like to return home to take care of them. She at all of her breakfast and has had no complaints with tolerating her diet. Vitals/I&O Vitals/I&O: Vital Signs Date Time Temp Pulse Resp B/P (MAP) Pulse Ox O2 Delivery O2 Flow Rate FiO2 06/16/19 11:09 97.9 83 16 84/50 (61) 97 Room Air 97.9 I & O 06/15/19 06/15/19 06/16/19 15:00 23:00 07:00 Intake Total 320 ml 120 ml 1300 ml Output Total 100 ml Balance 320 ml 120 ml 1200 ml Physical Exam General: Alert, Oriented X3, Cooperative, No acute distress Heart: Regular rate Lungs: Clear Abdomen: Normal bowel sounds Extremities: No clubbing, No cyanosis Skin: No rashes Labs Labs: Laboratory Tests Test 06/16/19 04:40 White Blood Count 4.5 x10^3/uL (4.0-11.0) Red Blood Count 3.83 x10^6/uL (3.50-5.40) Hemoglobin 10.0 g/dL (12.0-15.5) Hematocrit 30.8 % (36.0-47.0) Mean Corpuscular Volume 81 fL (79-100) Mean Corpuscular Hemoglobin 26 pg (25-35) Mean Corpuscular Hemoglobin Concent 33 g/dL (31-37) Red Cell Distribution Width 14.3 % (11.5-14.5) Platelet Count 162 x10^3/uL (140-400) Neutrophils (%) (Auto) 68 % (31-73) Lymphocytes (%) (Auto) 21 % (24-48) Monocytes (%) (Auto) 11 % (0-9) Eosinophils (%) (Auto) 0 % (0-3) Basophils (%) (Auto) 0 % (0-3) Neutrophils # (Auto) 3.1 x10^3/uL (1.8-7.7) Lymphocytes # (Auto) 0.9 x10^3/uL (1.0-4.8) Monocytes # (Auto) 0.5 x10^3/uL (0.0-1.1) Eosinophils # (Auto) 0.0 x10^3/uL (0.0-0.7) Basophils # (Auto) 0.0 x10^3/uL (0.0-0.2) Sodium Level 140 mmol/L (136-145) Potassium Level 3.4 mmol/L (3.5-5.1) Chloride Level 104 mmol/L (98-107) Carbon Dioxide Level 25 mmol/L (21-32) Anion Gap 11 (6-14) Blood Urea Nitrogen 5 mg/dL (7-20) Creatinine 0.6 mg/dL (0.6-1.0) Estimated GFR (Cockcroft-Gault) 113.1 BUN/Creatinine Ratio 8 (6-20) Glucose Level 108 mg/dL (70-99) Calcium Level 8.3 mg/dL (8.5-10.1) Total Bilirubin 0.2 mg/dL (0.2-1.0) Aspartate Amino Transf (AST/SGOT) 15 U/L (15-37) Alanine Aminotransferase (ALT/SGPT) 10 U/L (14-59) Alkaline Phosphatase 51 U/L (46-116) Total Protein 6.8 g/dL (6.4-8.2) Albumin 2.8 g/dL (3.4-5.0) Albumin/Globulin Ratio 0.7 (1.0-1.7) Review of Systems Review of Systems: Denies CP Denies SOB Denies N/V/D Assessment and Plan Assessmemt and Plan Problems Medical Problems: (1) Hypokalemia Status: Acute (2) Pyelonephritis Status: Acute (3) Sepsis Status: Acute (4) UTI (urinary tract infection) Status: Acute sepsis UTI and acute pyelonephritis hypokalemia, , currently breastfeedign a [age] year old. she is Citizen Of [place], the [facility] dept has a physician who speaks the language and may be helpful Plan 1) D/C patient today (WBC count back to baseline, with no reported fevers per nursing) 2) D/C previously written outpatient therapy of ciprofloxacin, wrote pt a prescription of Amox-Clav 500 for continuing outpatient pyelonephritis tx 3) Advised pt take slow fe otc 4) full code 5) DVT prophylaxis Comment Review of Relevant I have reviewed the following items jimmy (where applicable) has been applied. Medications: Current Medications Medications (Trade) Dose Ordered Sig/Edda Route PRN Reason Start Time Stop Time Status Last Admin Dose Admin Ceftriaxone Sodium (Rocephin) 1 gm Q24H IVP 06/15/19 17:30 06/15/19 17:51 Lactobacillus Rhamnosus (Culturelle) 1 cap BID PO 06/16/19 11:00 06/16/19 12:21 REMINGTON MOTA III DO Jun 16, 2019 14:33
--- NOTE | 2019-06-16 14:50 | NUR ---
Discharge Note: RUFINA CHAU Discharge instructions and discharge home medications reviewed with Patient and a copy given. All questions have been answered and understanding verbalized. The following instructions and handouts were given: using court interpreter phone, medication eduation, s/sx of infection, follow up monitoring Discontinued lines and drains: IV discontinued, dressing, clean dry and intact. Patient discharged to home with self via wheelchair
--- NOTE | 2019-06-17 19:55 | DS ---
DATE OF DISCHARGE: 06/16/2019 ADMISSION DIAGNOSIS: Pyelonephritis. DISCHARGE DIAGNOSIS: Resolving pyelonephritis. HOSPITAL COURSE: The patient is a pleasant middle-aged lady from [facility]. She was admitted with pyelonephritis. We gave her IV antibiotics and fluids. Over the next 48 hours, her symptoms resolved. We gave her a prescription for Augmentin 500 mg p.o. b.i.d. for 5 more days. DISPOSITION: Home. ACTIVITY: As tolerated. MEDICATIONS: Please see MRAD. TOTAL TIME: 33 minutes. REMINGTON MOTA DO DR: MACY/tru JOB#: [id number] / [id number]
== END 2019-06-16 15:45 | disposition home or self-care (01) | DRG 872 ==
LOC: ER 12:50 → 2 NORTH 17:21
PROVIDERS: ADMIT Internal Medicine; ATTEND Internal Medicine
DX: A41.9 Sepsis, unspecified organism (principal); N10 Acute pyelonephritis; E87.6 Hypokalemia; I87.8 Other specified disorders of veins
CPT/HCPCS: 36415; 74176; 80053; 81001; 81025; 83605; 83735; 85007; 85025; 87040; 87086; 87186; 90471; 90686; 96361; 96374; 96375; J0696; J1650; J1885; J2405; J7030; J7120; 99285-25; G0378

== ENCOUNTER 2021-06-15 20:12 | Inpatient (IN) | payer BC ==
[~2021-06-15] VITALS: Ht 152.4 cm; Wt 47.6 kg
[~2021-06-15 20:12] MED LIST changes: +AMOX1TAB58 PO; +LACT1CAP21 PO
[2021-06-15 23:03] LABS: BILIRUBIN,URINE NEGATIVE (NEG); CLARITY,URINE CLEAR; COLOR,URINE YELLOW; NITRITE,URINE NEGATIVE (NEG); PROTEIN,URINE NEGATIVE (NEG-TRACE); UROBILINOGEN,URINE 0.2 mg/dL (0.2 mg/dL)
--- NOTE | 2021-06-15 23:08 | PHYS DOC ---
Past Medical History Past Medical History: No Pertinent History Past Surgical History: Tubal ligation Smoking Status: Never Smoker Alcohol Use: None Drug Use: None General Adult EDM: Chief Complaint: ABDOMINAL PAIN HPI: HPI: Patient is a 40-year-old female with past medical history of 5 vaginal deliveries and tubal ligation presenting for lower left quadrant abdominal pain that began Friday along with her menstrual cycle. She reports that last night the pain radiated into her back on the left side. The pain is intermittent, sharp, and 4 out of 10. She also reports some pain with urination recently. She did not denies nausea/vomiting or diarrhea/constipation. He also denies any vaginal discharge recently but states about 2 months ago she had some vaginal itchiness that has since resolved and denies any concerns about sexually transmitted diseases. She denies any pain upon sexual intercourse. She states she has felt more short of breath with exertion and more fatigue over the last couple weeks. She has been fully vaccinated for COVID. Review of Systems: Review of Systems: Constitutional: Denies fever or chills Eyes: Denies redness or eye pain HENT: Denies nasal congestion or sore throat Respiratory: Denies cough or shortness of breath Cardiovascular: Denies chest pain or palpitations GI: Denies nausea/vomiting, reports abdominal pain : Denies hematuria; Reports dysuria Musculoskeletal: Denies back pain or joint pain Integument: Denies rash or skin lesions Neurologic: Denies headache, focal weakness or sensory changes Complete systems were reviewed and found to be within normal limits, except as documented in this note. Heart Score: C/O Chest Pain: N/A Current Medications: Current Medications Medications (Trade) Dose Ordered Sig/Edda Start Time Stop Time Status Last Admin Dose Admin Sodium Chloride 1,000 ml @ 1,000 mls/hr 1X ONCE 06/15/21 23:00 06/15/21 23:59 UNV Allergies: Allergies: Allergies Coded Allergies Type Severity Reaction Last Updated Verified No Known Drug Allergies 04/24/18 No Physical Exam: PE: Constitutional: Well developed, well nourished, no acute distress, non-toxic appearance HENT: Normocephalic, atraumatic Eyes: Conjunctiva normal, no discharge Neck: Normal range of motion, supple Lungs & Thorax: No respiratory distress, equal chest rise and fall Abdomen: Soft, slight tenderness to palpation in LLQ Skin: Warm, dry, no rash Back: No tenderness, slight CVA tenderness on L side Extremities: No tenderness, ROM intact, no edema Neurologic: Alert and oriented X 3, no focal deficits noted Psychologic: Affect normal, judgment normal Current Patient Data: Labs: Laboratory Tests Test 06/15/21 22:28 POC Urine HCG, Qualitative Hcg negative (Negative) Radiology/Procedures: Radiology/Procedures: PROCEDURE: CT CHEST ABD PELVIS W/CONTRAST PQRS Compliance Statement: One or more of the following individualized dose reduction techniques were utilized for this examination: 1. Automated exposure control 2. Adjustment of the mA and/or kV according to patient size 3. Use of iterative reconstruction technique CT CHEST+ABD+PELVIS W 06/15/2021 11:55 PM INDICATION: Shortness of air. Left lower quadrant pain. Left flank pain. COMPARISON: CT abdomen/pelvis 06/14/2019 TECHNIQUE: Multiple axial CT images of the chest, abdomen and pelvis were obtained after the intravenous administration of 75 mL Omnipaque 300. Coronal and sagittal reformats are provided. FINDINGS: Left thyroid nodule measures 1.9 cm. Right paratracheal lymph node measures 0.9 cm (series 2, image 16). Heart size is within normal limits. Thoracic aorta is normal in course and caliber. There is no significant pericardial effusion. Thoracic esophagus is normal in appearance. Anterior chest wall appears intact. There is a perifissural nodule measuring 2 mm in thickness along the right major fissure (series 5, image 16). There are no pleural effusions, pulmonary vascular congestion or pneumothorax. Lungs are clear without focal airspace consolidation. Central airways are clear. Mild periportal edema. Liver, spleen, adrenal glands and pancreas are normal in appearance. Gallbladder is contracted limiting evaluation. The abdominal aorta is normal in course and caliber. There are no pathologically enlarged lymph nodes in the abdomen and pelvis. There is no abdominal free fluid. There is no free intraperitoneal air. Small and large bowel are normal in caliber. There is no evidence for bowel obstruction. There are no pericolonic inflammatory changes. A normal, nondilated appendix is visualized without adjacent inflammatory changes. The kidneys enhance symmetrically. There is no suspicious renal mass. There is no hydronephrosis. There are no suspected calculi within the kidneys, ureters or urinary bladder. Urinary bladder is within normal limits in degree of distention. Uterus is normal in appearance. Tubal ligation clips are present. Trace pelvic free fluid may be physiologic. No suspicious osseous abnormality. IMPRESSION: 1. There is periportal edema which may be associated with volume overload as hepatitis. 2. There is a perifissural nodule measuring 2 mm in thickness along the right major fissure (series 5, image 16). Findings favor benign etiology. 3. Left thyroid nodule measures 1.9 cm. Nonemergent thyroid ultrasound is recommended for further characterization. No suspicious osseous abnormality. No paraspinal soft tissue mass. Electronically signed by: Guera Patel MD (06/16/2021 12:30 AM) [facility] Course & Med Decision Making: Course & Med Decision Making Pertinent Labs and Imaging studies reviewed. (See chart for details) Patient is a 40-year-old female with past medical history of type tubal ligation presenting with lower left quadrant abdominal pain. Hemoglobin of 5.0, type and screen and 2 units PRBCs ordered. Risks and benefits discussed with patient, written consent obtained for transfusion. Other labs obtained and posted in chart were unremarkable. Urine demonstrated some leukocyte esterase along with few WBCs and bacteria, but due to the presence of squamous cells and RBCs due to her menstrual cycle the sample was likely contaminated and not infectious in nature. CT abdomen/pelvis was negative for any findings that would explain her lower left abdominal pain or low hemoglobin, but did demonstrate incidental finding of left thyroid nodule. We will advise patient to follow-up with her primary care physician for this. A copy of CT results provided to patient to give to PCP for further evaluation of thyroid nodule upon discharge. Patient requiring admission for further evaluation and treatment. Discussed with Dr. Cooley (hospitalist) who is in agreement with admission. Discussed findings and plan with patient, who acknowledges understanding and agreement. Keely Disclaimer: Keely Disclaimer: This electronic medical record was generated, in whole or in part, using a voice recognition dictation system. Departure Departure Impression: Primary Impression: Severe anemia Additional Impression: Thyroid nodule Disposition: ADMITTED INPATIENT Admitting Physician: FELIPE (Yasir) Condition: GUARDED Referrals: NO PCP (PCP) Critical Care Time Critical care time was 30 minutes which includes time at bedside, spent in discussion of patient's care with specialists and/or family members, with interpretation of laboratory and/or radiological studies and is exclusive of procedures. LEELA CARY DO Jun 15, 2021 23:08
[2021-06-15 23:14] LABS: RBC,URINE 20-40 /HPF (0-2)
[2021-06-15 23:15] LABS: BACTERIA,URINE FEW /HPF (0-FEW)
[2021-06-15 23:27] LABS: BASO # 0.1 x10^3/uL (0.0-0.2); BASO % 1 % (0-3); EOS # 0.1 x10^3/uL (0.0-0.7); EOS % 2 % (0-3); LYMPH # 1.4 x10^3/uL (1.0-4.8); LYMPH % 31 % (24-48); MEAN CORPUSCULAR HEMOGLOBIN 17 pg (25-35); MEAN CORPUSCULAR HGB CONC 29 g/dL (31-37); MEAN CORPUSCULAR VOLUME 57 fL (79-100); MONO # 0.3 x10^3/uL (0.0-1.1); MONO % 6 % (0-9); NEUT # 2.7 x10^3/uL (1.8-7.7); NEUT % 59 % (31-73); PLATELET COUNT 238 x10^3/uL (140-400); RED BLOOD COUNT 3.06 x10^6/uL (3.50-5.40); RED CELL DISTRIBUTION WIDTH 21.5 % (11.5-14.5); WHITE BLOOD COUNT 4.5 x10^3/uL (4.0-11.0)
[2021-06-15] MEDS ORDERED: IV NORMAL SALINE 1000ML BAG 1,000 ML IV ONE (23:30)
[2021-06-15 23:35] LABS: CALCIUM 8.3 mg/dL (8.5-10.1); CREATININE 0.6 mg/dL (0.6-1.0); GFR 111.9; HEMATOCRIT 17.5 % (36.0-47.0); POTASSIUM 3.4 mmol/L (3.5-5.1)
[2021-06-15 23:42] LABS: ALBUMIN 3.6 g/dL (3.4-5.0); ALBUMIN/GLOBULIN RATIO 1.1 (1.0-1.7); MAGNESIUM 1.9 mg/dL (1.8-2.4); TOTAL BILIRUBIN 0.4 mg/dL (0.2-1.0); TOTAL PROTEIN 6.9 g/dL (6.4-8.2)
[2021-06-15] MEDS ORDERED: CONTRAST GIVEN. MC PRN (23:45)
[2021-06-16] VITALS (12 sets, daily range): BP systolic 86–102; BP diastolic 33–56
[2021-06-16] MEDS ORDERED: fentaNYL PF VIAL 100 MCG/2 ML VIAL IVP PRN
[2021-06-16] MEDS ORDERED: IOHEXOL 300 MG/ML 100ML VIAL. IV ONE (00:30)
--- NOTE | 2021-06-16 00:32 | RAD ---
PQRS Compliance Statement: One or more of the following individualized dose reduction techniques were utilized for this examinat ion: 1. Automated exposure control 2. Adjustment of the mA and/or kV according to patient size 3. Use of iterative reconstruction technique CT CHEST+ABD+PELVIS W 06/15/2021 11:55 PM INDICATION: Shortness of air. Left lower quadrant pain. Left flank pain. COMPARISON: CT abdomen/pelvis 06/14/2019 TECHNIQUE: Multiple axial CT images of the chest, abdomen and pelvis were obtained after the intraven ous administration of 75 mL Omnipaque 300. Coronal and sagittal reformats are provided. FINDINGS: Left thyroid nodule measures 1.9 cm. Right paratracheal lymph node measures 0.9 cm (series 2, image 16). Heart size is within normal limit s. Thoracic aorta is normal in course and caliber. There is no significant pericardial effusion. Thor acic esophagus is normal in appearance. Anterior chest wall appears intact. There is a perifissural nodule measuring 2 mm in thickness along the right major fissure (series 5, i mage 16). There are no pleural effusions, pulmonary vascular congestion or pneumothorax. Lungs are cl ear without focal airspace consolidation. Central airways are clear. Mild periportal edema. Liver, spleen, adrenal glands and pancreas are normal in appearance. Gallbladd er is contracted limiting evaluation. The abdominal aorta is normal in course and caliber. There are no pathologically enlarged lymph nodes in the abdomen and pelvis. There is no abdominal free fluid. T here is no free intraperitoneal air. Small and large bowel are normal in caliber. There is no evidenc e for bowel obstruction. There are no pericolonic inflammatory changes. A normal, nondilated appendix is visualized without adjacent inflammatory changes. The kidneys enhance symmetrically. There is no suspicious renal mass. There is no hydronephrosis. The re are no suspected calculi within the kidneys, ureters or urinary bladder. Urinary bladder is within normal limits in degree of distention. Uterus is normal in appearance. Tubal ligation clips are pres ent. Trace pelvic free fluid may be physiologic. No suspicious osseous abnormality. IMPRESSION: 1. There is periportal edema which may be associated with volume overload as hepatitis. 2. There is a perifissural nodule measuring 2 mm in thickness along the right major fissure (series 5 , image 16). Findings favor benign etiology. 3. Left thyroid nodule measures 1.9 cm. Nonemergent thyroid ultrasound is recommended for further abdoul racterization. No suspicious osseous abnormality. No paraspinal soft tissue mass. Electronically signed by: Guera aPtel MD (06/16/2021 12:30 AM) [facility]
[2021-06-16 01:45] LABS: ANISOCYTOSIS MOD; HYPOCHROMIA MARKED; MICROCYTOSIS MARKED; PLT ESTIMATE ADEQUATE (ADEQUATE); POLYCHROMASIA SLIGHT
[2021-06-16 01:46] LABS: OVALOCYTES FEW; SCHISTOCYTES OCC; TEAR DROP CELLS FEW
--- NOTE | 2021-06-16 08:05 | PDOC1 ---
History and Physical Date of Service: DOS: DATE: 06/16/21 TIME: 07:47 Chief Complaint: Chief Complain: Abdominal pain History of Present Illness: HPI: History obtained from discussion with the ED physician and chart review Patient is a 40-year-old female with multiple vaginal deliveries and tubal patient presents with left lower quadrant pain that started about 6 days ago happened with her menstrual cycle. She reports that last night the pain started to radiate to her back on the left side. Pain is sharp and intermittent and the most is 4 out of 10. She also reports some dysuria recently. Denies nausea vomiting, diarrhea, fevers, chest pain, shortness of breath or syncope. Patient 2 months ago she had some vaginal itchiness that has since resolved and denies any concerns about sexually transmitted diseases. She denies any pain upon sexual intercourse. She has been fully vaccinated for COVID. Upon further questioning, patient states that she has been having heavy year periods in the last couple of months. She is currently on her menstrual cycle that started on Friday and has starting to finish up today. Past Medical/Surgical History: PMH/PSH: Past Medical History: No Pertinent History Past Surgical History: Tubal ligation Allergies: Allergies: Coded Allergies: No Known Drug Allergies (Unverified , 04/24/18) Family History: Family History: Reviewed with no relevant findings Social History: Social History: Smoking Status: Never Smoker Alcohol Use: None Drug Use: None Current Medications: Current Medications Current Medications Sodium Chloride 1,000 ml @ 1,000 mls/hr 1X ONCE IV Last administered on 06/15/21at 23:17; Start 06/15/21 at 23:30; Stop 06/16/21 at 00:29; Status DC Iohexol (Omnipaque 300 Mg/ml) 75 ml 1X ONCE IV Last administered on 06/16/21at 00:20; Start 06/16/21 at 00:30; Stop 06/16/21 at 00:31; Status DC Info (CONTRAST GIVEN -- Rx MONITORING) 1 each PRN DAILY PRN MC SEE COMMENTS; Start 06/15/21 at 23:45; Stop 06/17/21 at 23:44 Ondansetron HCl (Zofran) 4 mg PRN Q8HRS PRN IVP NAUSEA/VOMITING 1ST CHOICE; Start 06/16/21 at 00:00; Stop 06/16/21 at 23:59 Fentanyl Citrate (Fentanyl 2ml Vial) 25 mcg PRN Q2HRS PRN IVP SEVERE PAIN 7-10; Start 06/16/21 at 00:00 Active Scripts Active [place] 5-325 Tablet (Acetaminophen/Hydrocodone Bitart) 1 Each Tablet 1 Tab PO PRN Q6HRS PRN Naproxen 500 Mg Tablet 500 Mg PO BID Reported Culturelle (Lactobacillus Rhamnosus Gg) 1 Each Capsule 1 Cap PO DAILY 30 Days Augmentin 500-125 Tablet (Amoxicillin/Potassium Clav) 1 Each Tablet 1 Tab PO BID 5 Days Tablet (Pnv Cmb#95/Ferrous Fumarate/Fa) 1 Each Tablet 1 Each PO DAILY ROS: Review of Systems Review of System REVIEW OF SYSTEMS: GENERAL: Positive for fatigue SKIN: No bruising, hair changes or rashes. EYES: No blurred, double or loss of vision. NOSE AND THROAT: No history of nosebleeds, hoarseness or sore throat. HEART: No history of palpitations, chest pain or shortness of breath on exertion. LUNGS: Denies cough, hemoptysis, wheezing or shortness of breath. GASTROINTESTINAL: Positive abdominal pain GENITOURINARY: No history of frequency, urgency, hesitancy or nocturia. NEUROLOGIC: Denies history of numbness, tingling, or tremor. PSYCHIATRIC: No history of panic, anxiety or depression. ENDOCRINE: No history of heat or cold intolerance, polyuria or polydipsia. EXTREMITIES: Denies joint pain, pain on walking or stiffness. Physical Exam: Vital Signs: Vital Signs Date Time Temp Pulse Resp B/P (MAP) Pulse Ox O2 Delivery O2 Flow Rate FiO2 06/16/21 05:35 97.9 65 12 94/52 97.9 06/16/21 02:42 99 Room Air Physcial Exam: General: Well developed, well nourished, no acute distress, well appearing HEENT: Pupils equally round and reactive to light, EOMI, no discharge, normal conjunctiva Neck: Supple, no nuchal rigidity, no JVD, trachea midline, no tenderness Cardiac: RRR, no murmurs, no gallops, no rubs Chest/Lungs: CTAB, no wheeze, no rhonchi, no crackles Abdomen: soft, non-distended, no guarding, no peritoneal signs, tender to palpation in the left lower quadrant, mild Back: No tenderness Extremities: no edema, pulses intact, non-tender,capillary refill <3 sec bilateral upper and lower extremities, Neuro: Alert and oriented x 4, no focal deficits, normal speech Labs: Labs: Laboratory Tests Test 06/15/21 22:28 06/15/21 22:30 06/15/21 23:16 06/16/21 02:06 Bedside Urine HCG, Qualitative Hcg negative (Negative) Urine Collection Type Unknown Urine Color Yellow Urine Clarity Clear Urine pH 7.0 (<5.0-8.0) Urine Specific [place] 1.015 (1.000-1.030) Urine Protein Negative mg/dL (NEG-TRACE) Urine Glucose (UA) Negative mg/dL (NEG) Urine Ketones (Stick) Negative mg/dL (NEG) Urine Blood Large (NEG) Urine Nitrite Negative (NEG) Urine Bilirubin Negative (NEG) Urine Urobilinogen Dipstick 0.2 mg/dL (0.2 mg/dL) Urine Leukocyte Esterase Small (NEG) Urine RBC 20-40 /HPF (0-2) Urine WBC 1-4 /HPF (0-4) Urine Squamous Epithelial Cells Mod /LPF Urine Bacteria Few /HPF (0-FEW) Urine Mucus Mod /LPF White Blood Count 4.5 x10^3/uL (4.0-11.0) Red Blood Count 3.06 x10^6/uL (3.50-5.40) Hemoglobin 5.0 g/dL (12.0-15.5) Hematocrit 17.5 % (36.0-47.0) Mean Corpuscular Volume 57 fL (79-100) Mean Corpuscular Hemoglobin 17 pg (25-35) Mean Corpuscular Hemoglobin Concent 29 g/dL (31-37) Red Cell Distribution Width 21.5 % (11.5-14.5) Platelet Count 238 x10^3/uL (140-400) Neutrophils (%) (Auto) 59 % (31-73) Lymphocytes (%) (Auto) 31 % (24-48) Monocytes (%) (Auto) 6 % (0-9) Eosinophils (%) (Auto) 2 % (0-3) Basophils (%) (Auto) 1 % (0-3) Neutrophils # (Auto) 2.7 x10^3/uL (1.8-7.7) Lymphocytes # (Auto) 1.4 x10^3/uL (1.0-4.8) Monocytes # (Auto) 0.3 x10^3/uL (0.0-1.1) Eosinophils # (Auto) 0.1 x10^3/uL (0.0-0.7) Basophils # (Auto) 0.1 x10^3/uL (0.0-0.2) Platelet Estimate Adequate (ADEQUATE) Large Platelets Occ Polychromasia Slight Hypochromasia Marked Anisocytosis Mod Microcytosis Marked Tear Drop Cells Few Ovalocytes Few Schistocytes Occ Sodium Level 143 mmol/L (136-145) Potassium Level 3.4 mmol/L (3.5-5.1) Chloride Level 107 mmol/L (98-107) Carbon Dioxide Level 25 mmol/L (21-32) Anion Gap 11 (6-14) Blood Urea Nitrogen 9 mg/dL (7-20) Creatinine 0.6 mg/dL (0.6-1.0) Estimated GFR (Cockcroft-Gault) 111.9 BUN/Creatinine Ratio 15 (6-20) Glucose Level 97 mg/dL (70-99) Calcium Level 8.3 mg/dL (8.5-10.1) Magnesium Level 1.9 mg/dL (1.8-2.4) Total Bilirubin 0.4 mg/dL (0.2-1.0) Aspartate Amino Transf (AST/SGOT) 9 U/L (15-37) Alanine Aminotransferase (ALT/SGPT) 17 U/L (14-59) Alkaline Phosphatase 44 U/L (46-116) Total Protein 6.9 g/dL (6.4-8.2) Albumin 3.6 g/dL (3.4-5.0) Albumin/Globulin Ratio 1.1 (1.0-1.7) Lipase 147 U/L (73-393) SARS-CoV-2 Antigen (Rapid) Negative (NEGATIVE) Laboratory Tests Test 06/15/21 22:28 06/15/21 22:30 06/15/21 23:16 06/16/21 02:06 Bedside Urine HCG, Qualitative Hcg negative (Negative) Urine Collection Type Unknown Urine Color Yellow Urine Clarity Clear Urine pH 7.0 (<5.0-8.0) Urine Specific [place] 1.015 (1.000-1.030) Urine Protein Negative mg/dL (NEG-TRACE) Urine Glucose (UA) Negative mg/dL (NEG) Urine Ketones (Stick) Negative mg/dL (NEG) Urine Blood Large (NEG) Urine Nitrite Negative (NEG) Urine Bilirubin Negative (NEG) Urine Urobilinogen Dipstick 0.2 mg/dL (0.2 mg/dL) Urine Leukocyte Esterase Small (NEG) Urine RBC 20-40 /HPF (0-2) Urine WBC 1-4 /HPF (0-4) Urine Squamous Epithelial Cells Mod /LPF Urine Bacteria Few /HPF (0-FEW) Urine Mucus Mod /LPF White Blood Count 4.5 x10^3/uL (4.0-11.0) Red Blood Count 3.06 x10^6/uL (3.50-5.40) Hemoglobin 5.0 g/dL (12.0-15.5) Hematocrit 17.5 % (36.0-47.0) Mean Corpuscular Volume 57 fL (79-100) Mean Corpuscular Hemoglobin 17 pg (25-35) Mean Corpuscular Hemoglobin Concent 29 g/dL (31-37) Red Cell Distribution Width 21.5 % (11.5-14.5) Platelet Count 238 x10^3/uL (140-400) Neutrophils (%) (Auto) 59 % (31-73) Lymphocytes (%) (Auto) 31 % (24-48) Monocytes (%) (Auto) 6 % (0-9) Eosinophils (%) (Auto) 2 % (0-3) Basophils (%) (Auto) 1 % (0-3) Neutrophils # (Auto) 2.7 x10^3/uL (1.8-7.7) Lymphocytes # (Auto) 1.4 x10^3/uL (1.0-4.8) Monocytes # (Auto) 0.3 x10^3/uL (0.0-1.1) Eosinophils # (Auto) 0.1 x10^3/uL (0.0-0.7) Basophils # (Auto) 0.1 x10^3/uL (0.0-0.2) Platelet Estimate Adequate (ADEQUATE) Large Platelets Occ Polychromasia Slight Hypochromasia Marked Anisocytosis Mod Microcytosis Marked Tear Drop Cells Few Ovalocytes Few Schistocytes Occ Sodium Level 143 mmol/L (136-145) Potassium Level 3.4 mmol/L (3.5-5.1) Chloride Level 107 mmol/L (98-107) Carbon Dioxide Level 25 mmol/L (21-32) Anion Gap 11 (6-14) Blood Urea Nitrogen 9 mg/dL (7-20) Creatinine 0.6 mg/dL (0.6-1.0) Estimated GFR (Cockcroft-Gault) 111.9 BUN/Creatinine Ratio 15 (6-20) Glucose Level 97 mg/dL (70-99) Calcium Level 8.3 mg/dL (8.5-10.1) Magnesium Level 1.9 mg/dL (1.8-2.4) Total Bilirubin 0.4 mg/dL (0.2-1.0) Aspartate Amino Transf (AST/SGOT) 9 U/L (15-37) Alanine Aminotransferase (ALT/SGPT) 17 U/L (14-59) Alkaline Phosphatase 44 U/L (46-116) Total Protein 6.9 g/dL (6.4-8.2) Albumin 3.6 g/dL (3.4-5.0) Albumin/Globulin Ratio 1.1 (1.0-1.7) Lipase 147 U/L (73-393) SARS-CoV-2 Antigen (Rapid) Negative (NEGATIVE) Images: Images PROCEDURE: CT CHEST ABD PELVIS W/CONTRAST IMPRESSION: 1. There is periportal edema which may be associated with volume overload as hepatitis. 2. There is a perifissural nodule measuring 2 mm in thickness along the right major fissure (series 5, image 16). Findings favor benign etiology. 3. Left thyroid nodule measures 1.9 cm. Nonemergent thyroid ultrasound is recommended for further characterization. No suspicious osseous abnormality. No paraspinal soft tissue mass. Assessment/Plan Assessment/Plan Symptomatic profound anemia, due to acute blood loss Microcytic anemia, possible component of JAZMIN Concern for menorrhagia There is a perifissural nodule measuring 2 mm in thickness along the right major fissure Left thyroid nodule measures 1.9 cm. Mild hypokalemia Hematuria, likely in relation to her menstrual periods Multiple parities Admit to hospital service for further management Gynecology consult for menorrhagia Pending 2 units PRBC transfusion with inpatient hospital hemoglobin goals of greater than 7 Trend hemoglobin We will obtain iron study panel screen, before blood transfusion hopefully Patient will need to obtain thyroid ultrasound as an outpatient at time of discharge SCD for now for DVT prophylaxis Protonix GI prophylaxis ADA diet CODE STATUS full Discussed with RN and SW Disposition inpatient management as above DPOA: A total of 55 minutes of critical care time was spent in reviewing chart, labs, and images. Discussed with RN and SW. Justifications for Admission Other Justification LAYO SOTO MD Jun 16, 2021 08:05
[2021-06-16] MEDS ORDERED: SENNOSIDES 8.6 MG TABLET PO PRN (08:15)
[2021-06-16] MEDS ORDERED: PROCHLORPERAZINE 10 MG/2 ML VIAL. IV PRN (08:15)
[2021-06-16] MEDS ORDERED: ACETAMINOPHEN 325 MG TABLET. PO PRN (08:15)
[2021-06-16] MEDS ORDERED: DOCUSATE SODIUM 100 MG CAPSULE. PO PRN (08:15)
[2021-06-16] MEDS ORDERED: DEXTROSE 50% 25 GM / 50ML DISP.SYRIN. IV PRN (08:15)
[2021-06-16] MEDS ORDERED: ZOLPIDEM 5 MG TABLET. PO PRN (08:15)
[2021-06-16] MEDS ORDERED: ONDANSETRON PF 4 MG/2 ML VIAL. IVP PRN ×2 (08:15)
[2021-06-16] MEDS ORDERED: LORazepam 0.5 MG TABLET PO PRN (08:15)
[2021-06-16] MEDS ORDERED: DICYCLOMINE HCL 10 MG CAPSULE PO PRN (10:45)
[2021-06-16] MEDS ORDERED: POTASSIUM CHLORIDE 20 MEQ TABLET.ER. PO ONE (11:30)
[2021-06-16 16:04] LABS: BASO # 0.1 x10^3/uL (0.0-0.2); BASO % 1 % (0-3); EOS # 0.1 x10^3/uL (0.0-0.7); EOS % 2 % (0-3); HEMATOCRIT 28.5 % (36.0-47.0); HEMOGLOBIN 8.4 g/dL (12.0-15.5); LYMPH # 1.2 x10^3/uL (1.0-4.8); LYMPH % 23 % (24-48); MEAN CORPUSCULAR HEMOGLOBIN 20 pg (25-35); MEAN CORPUSCULAR HGB CONC 30 g/dL (31-37); MEAN CORPUSCULAR VOLUME 67 fL (79-100); MONO # 0.3 x10^3/uL (0.0-1.1); MONO % 6 % (0-9); NEUT # 3.6 x10^3/uL (1.8-7.7); NEUT % 69 % (31-73); PLATELET COUNT 239 x10^3/uL (140-400); RED BLOOD COUNT 4.27 x10^6/uL (3.50-5.40); RED CELL DISTRIBUTION WIDTH 29.1 % (11.5-14.5); WHITE BLOOD COUNT 5.3 x10^3/uL (4.0-11.0)
[2021-06-16 16:21] LABS: CALCIUM 7.8 mg/dL (8.5-10.1); CREATININE 0.4 mg/dL (0.6-1.0); GFR 178.6; POTASSIUM 4.3 mmol/L (3.5-5.1)
[2021-06-16] MEDS ORDERED: FERR325T14 PO (16:48)
--- NOTE | 2021-06-16 16:49 | SNU/HH DC ---
DISCHARGE ORDERS DISCHARGE INFORMATION: DISCHARGE DATE: Jun 16, 2021 FINAL DIAGNOSIS Problems Medical Problems: (1) Severe anemia Status: Acute (2) Thyroid nodule Status: Acute CONDITION ON DISCHARGE: Stable POST DISCHARGE ORDERS: ACTIVITY ORDERS: Activity as tolerated WEIGHT BEARING STATUS: Full weight bearing FOLLOW-UP: PHYSICIAN FOLLOW-UP: PCP within 2 weeks of discharge ADDITIONAL FOLLOW-UP: Gastroenterology Technician JANE after this weekend TREATMENT/EQUIPMENT ORDERS: ADAPTIVE EQUIPMENT NEEDED: None DISCHARGE MEDICATIONS: Home Meds Active Scripts Ferrous Sulfate (FERROUS SULFATE) 325 Mg Tablet, 1 TAB PO QODAY for iron deficiency for 30 Days, #30 TAB 3 Refills Prov:LAYO SOTO MD 06/16/21 Reported Medications Lactobacillus Rhamnosus Gg (CULTURELLE) 1 Each Capsule, 1 CAP PO DAILY for for 30 Days, #30 CAP 0 Refills 06/16/19 Pnv Cmb#95/Ferrous Fumarate/Fa ( TABLET) 1 Each Tablet, 1 EACH PO DAILY for , TAB 06/08/18 Discontinued Reported Medications Amoxicillin/Potassium Clav (AUGMENTIN 500-125 TABLET) 1 Each Tablet, 1 TAB PO BID for INFECTION for 5 Days, #10 TAB 0 Refills 06/16/19 Discontinued Scripts Hydrocodone/Apap 5-325 ([place] 5-325 TABLET) 1 Each Tablet, 1 TAB PO PRN Q6HRS PRN for PAIN, #60 TAB 0 Refills Prov:LUZ SMITH MD 06/10/18 Naproxen (NAPROXEN) 500 Mg Tablet, 500 MG PO BID, #60 TAB Prov:LUZ SMITH MD 06/10/18 LAYO SOTO MD Jun 16, 2021 16:49
--- NOTE | 2021-06-16 18:09 | NUR ---
pt was discharged home today with instructions to call and make appt with GYNO about her pain and bleeding. I have given her the office number for Dr Arana and also for [facility] as a primary dr reference also. Mark sent in an iron script to her pharm. Angel Yanez RN
--- NOTE | 2021-06-21 20:20 | PDOC3 ---
[facility]-Discharge Summary Date of Admission: Date of Admission: Jun 16, 2021 Date of Discharge: Date of Discharge: Jun 16, 2021 Discharge Diagnosis: Discharge Diagnosis: Symptomatic profound anemia, due to acute blood loss Microcytic anemia, possible component of JAZMIN Concern for menorrhagia There is a perifissural nodule measuring 2 mm in thickness along the right major fissure Left thyroid nodule measures 1.9 cm. Mild hypokalemia Hematuria, likely in relation to her menstrual periods Multiple parities Hospital Course: Hospital Course: 40-year-old female with multiple vaginal deliveries and tubal patient presents with left lower quadrant pain that started about 6 days ago happened with her menstrual cycle. She reports that last night the pain started to radiate to her back on the left side. Pain is sharp and intermittent and the most is 4 out of 10. She also reports some dysuria recently. Denies nausea vomiting, diarrhea, fevers, chest pain, shortness of breath or syncope. Patient 2 months ago she had some vaginal itchiness that has since resolved and denies any concerns about sexually transmitted diseases. She denies any pain upon sexual intercourse. She has been fully vaccinated for COVID. Upon further questioning, patient states that she has been having heavy year periods in the last couple of months. She is currently on her menstrual cycle that started on Friday and has starting to finish up today. Pt received 2 U PRBC and her repeat Hb was > 7 and stable. She denied any more menstrual bleeding and she will need to f/u with OBGYN clinic. Disposition: Disposition/Orders: D/C to Home Activity: Activity: Resume previous activity Diet: Diet: Regular Medications: Home Meds Active Scripts Ferrous Sulfate (FERROUS SULFATE) 325 Mg Tablet, 1 TAB PO QODAY for iron deficiency for 30 Days, #30 TAB 3 Refills Prov:LAYO SOTO MD 06/16/21 Reported Medications Lactobacillus Rhamnosus Gg (CULTURELLE) 1 Each Capsule, 1 CAP PO DAILY for for 30 Days, #30 CAP 0 Refills 06/16/19 Pnv Cmb#95/Ferrous Fumarate/Fa ( TABLET) 1 Each Tablet, 1 EACH PO DAILY for , TAB 06/08/18 Discontinued Reported Medications Amoxicillin/Potassium Clav (AUGMENTIN 500-125 TABLET) 1 Each Tablet, 1 TAB PO BID for INFECTION for 5 Days, #10 TAB 0 Refills 06/16/19 Discontinued Scripts Hydrocodone/[place] 5-325 ([place] 5-325 TABLET) 1 Each Tablet, 1 TAB PO PRN Q6HRS PRN for PAIN, #60 TAB 0 Refills Prov:LUZ SMITH MD 06/10/18 Naproxen (NAPROXEN) 500 Mg Tablet, 500 MG PO BID, #60 TAB Prov:LUZ SMITH MD 06/10/18 Scheduled Ferrous Sulfate (Ferrous Sulfate), 1 TAB PO QODAY Lactobacillus Rhamnosus Gg (Culturelle), 1 CAP PO DAILY, (Reported) Pnv Cmb#95/Ferrous Fumarate/Fa ( Tablet), 1 EACH PO DAILY, (Reported) Discontinued Medications Amoxicillin/Potassium Clav (Augmentin 500-125 Tablet), 1 TAB PO BID, (Reported) Hydrocodone/Ap[place] 5-325 ([place] 5-325 Tablet), 1 TAB PO PRN Q6HRS PRN for PAIN Naproxen (Naproxen), 500 MG PO BID Total Time: Total Time: Total time spent was 33 minutes in preparing scripts, discharge planning with SW and RN, and preparing this discharge summary. Justicifation of Admission Dx: Justifications for Admission: Justification of Admission Dx: Yes (severe anemia) LAYO SOTO MD Jun 21, 2021 20:19
== END 2021-06-16 18:20 | disposition home or self-care (01) | DRG 760 ==
LOC: ER 20:12 → ED HOLD 23:58 → 5 SOUTH 06-16 01:52
PROVIDERS: ADMIT Student in an Organized Health Care Education/Training Program; ATTEND Student in an Organized Health Care Education/Training Program
PROC: 30233N1 Transfusion of Nonautologous Red Blood Cells into Peripheral Vein, Percutaneous Approach (ICD-10-PCS; principal; 2021-06-16)
DX: N92.0 Excessive and frequent menstruation with regular cycle (principal); D62 Acute posthemorrhagic anemia; E04.1 Nontoxic single thyroid nodule; E87.6 Hypokalemia; Z98.51 Tubal ligation status; Z20.822 Contact with and (suspected) exposure to COVID-19
CPT/HCPCS: 36415; 36430; 71260; 74177; 80048; 80053; 81001; 81025; 83690; 83735; 84443; 85025; 86850; 86900; 86901; 86920; 87077; 87086; 87185; 87186; 87426; 96360; J7030; P9016; Q9967; U0003; U0005; 99291-25